=== PATIENT | female | born 1960 | race Caucasian/White ===

== ENCOUNTER → 2021-08-13 | Outpatient (CLI) | payer OTHER ==
[~2021-08-13] MED LIST: CALCIUM PO; DIOVAN160 MG PO; FEOSOL BIFERA 228 MG PO; FISH OIL 1,2001 EAC3 PO; GLUCOSAMINE &1 EAC1 PO; LEVAQUIN 750 M750 MG PO; LIDODERM 5%1 PATCH TOP; LIPITOR10 MG PO; OSELB75 PO; PROTONIX 20 MG20 M1 PO; VENTOLIN HFA INH8 GM IH; ZANTAC 150MG T150 M1 PO
== END ==
LOC: M.RAD 10:24
PROVIDERS: ATTEND Family Medicine
DX: Z12.31 Encounter for screening mammogram for malignant neoplasm of breast (principal)